=== PATIENT | male | born 1990 | race Caucasian/White ===

== ENCOUNTER 2017-02-07 03:17 | Observation (INO) ==
[2017-02-07] MEDS ORDERED: Ondansetron ODT 4 MG TAB.RAPDIS SL STA (03:28)
--- NOTE | 2017-02-07 03:31 | Emergency Department Note ---
Disposition Clinical Impression: Gastroenteritis, Renal failure, acute Disposition: Admitted As Inpatient Condition: Good Instructions: Gastroenteritis (ED) Reasons to Return/Additional Instructions: Blood pressure screening: When you had your blood pressure taken, if the top number was greater than 120 with a bottom number was greater than 80, I discussed and recommended that you call your primary care provider or a physician of your choice this week to arrange follow-up for further evaluation of your blood pressure. Elevated blood pressures which go untreated can lead to stroke, heart attack, kidney failure and other life-threatening diseases. This is a screening exam and recommendations are to follow with your Family Physician. ( We discussed reasons why the elevation could be occurring at this time. ) If you have had an EKG and/or x-ray performed in the emergency department, it will be reviewed by the pond worker and/or radiologist. If the review changes your diagnosis or treatment you will be contacted at the phone number you provided. Prescribed outpatient testing: Please call to schedule an appointment for the test that was ordered on the form provided. If you been prescribed an antibiotic: Take it as instructed until itis all finished. If you cannot tolerate that medication for some reason, call your physician for a replacement. If he had a specimen collected for a culture, a culture report takes 48-72 hours to generate. You will be contacted if a change in treatment is needed. Return if your condition worsens or if you have severe pain, fever, vomiting or difficulty breathing. If you received or were prescribed a medication that may cause drowsiness ( Tramadol, Phenergan, Trazodone, Diazepam, Lorazepam, Hydroxyzine, Xanax, Hydrocodone, Oxycodone, Codeine, or any other medication) DO NOT drive or drink alcohol, or operate machinery that requires you to be alert for at least 8 hours after taking that medication. If you smoke or chew tobacco products: discuss with your family physician options to help in the cessation in the use of tobacco products. If you to find a physician: Go to [email or web address] or call: [facility], [facility] [phone] [facility], You may have multiple scripts and some may have been electronically sent . If you are give a printed script please also take this in when filling the scripts. A diagnosis may require multiple medications to treat and all are important in your healthcare issues. Prescriptions: Ondansetron ODT [Zofran ODT] 4 mg SL Q6HR #24 tab.rapdis Referrals: NO,PCP [Primary Care Provider] - Forms: ED Satisfaction Letter Time of Disposition: 05:28 Nausea/Vomiting/Diarrhea HPI - General Chief complaint: ED Nausea/Vomiting/Diarrhea Stated complaint: vomiting Time Seen by Provider: 02/07/17 03:26 Source: patient Mode of arrival: ambulatory Limitations: no limitations Nursing Notes Reviewed: Yes Vital Signs Reviewed: Yes - History of Present Illness HPI Narrative: History of nausea vomiting no abdominal pain except for some burning irritation and irritation no fevers no chills no black or tarry melanotic stools no coffee- ground emesis he states that he thinks he is at risk for hepatitis he denies any numbness tingling weakness recently gaining weight loss any rashes or lesions Pt Subjective Complaint: nausea, vomiting Onset (ago): week(s) (3) Description of emesis: food contents Associated Abdominal Pain: Yes (epigastric) If pain, Location of pain: epigastric Severity: mild Severity scale (1-10): 2 Quality: aching Consistency: intermittent Improves with: nothing Worsens with: vomiting Context: other (possible hepatitis exposure or risk) Associated symptoms: Reports: myalgias, loss of appetite, malaise, nausea/ vomiting, weakness, other (tea colored Urine). Denies: chest pain, cough, diaphoresis, fever/chills, headaches, dysuria, shortness of breath, syncope - Related Data Home Medications Medication Instructions Recorded Confirmed Naproxen Sodium [Aleve] 220 mg PO DAILY PRN 11/27/16 02/07/17 Previous Rx's Medication Instructions Recorded Ondansetron ODT [Zofran ODT] 4 mg SL Q6HR #24 tab.rapdis 02/07/17 Allergies Allergy/AdvReac Type Severity Reaction Status Date / Time No Known Allergies Allergy Verified 11/27/16 11:11 All systems ED: reviewed and negative except as stated. Constitutional: Denies: fever, chills Eyes: Denies: eye pain ENT ED: Denies: ear pain, throat pain Cardiovascular: Denies: chest pain, palpitations Respiratory: Denies: dyspnea, wheezes Gastrointestinal: Reports: abdominal pain, nausea, vomiting Genitourinary: Denies: urgency, dysuria, frequency Musculoskeletal: Denies: back pain, neck pain Integumentary: Denies: abrasion Neurological: Denies: headache Psychiatric: Denies: anxiety Endocrine: Denies: fatigue Hematological/Lymphatic: Denies: easy bleeding Allergic/Immunologic: Denies: facial swelling Past Medical History - Past Medical History Attestation: Yes The following information was validated with the patient. Source: patient, old records reviewed, nursing notes reviewed Medical history: Reports: no medical history, other (risk for hep C) Psychiatric history: Reports: no psych history - Social History Smoking Status: Current every day smoker Smokeless Tobacco Status: No Alcohol use: Reports: none Drug use: Reports: marijuana, IVDU Physical Exam - General Limitations: no limitations General appearance: alert, in no apparent distress, cachectic - Head Head exam: atraumatic, normocephalic, normal inspection - Eye Eye exam: Present: normal appearance, PERRL, EOMI - ENT ENT exam: normal exam, normal oropharynx, mucous membranes dry, TM's normal bilaterally, normal external ear exam - Neck Neck exam: Present: normal inspection, full ROM, trachea midline - Chest Chest inspection: Present: normal inspection, symmetric chest wall rise - Respiratory Respiratory exam: Present: normal lung sounds bilaterally - Cardiovascular Cardiovascular exam: Present: regular rate, normal rhythm, normal heart sounds - Abdominal Exam Abdominal exam: Present: soft, Non-Tender, normal bowel sounds. Absent: mass, pulsatile mass - Extremities Exam Extremities exam: Present: normal inspection, full ROM, normal capillary refill. Absent: tenderness, joint swelling - Expanded Lower Extremity Exam Gait: observed and normal - Back Exam Back exam: Present: normal inspection, full ROM. Absent: muscle spasm - Neurological Exam Neurological exam: Present: alert, oriented X3, CN II-XII intact, normal gait - Psychiatric Psychiatric exam: Present: normal affect, normal mood - Skin Skin exam: Present: warm, dry, intact, normal color Course Course Narrative: he was seen and examined she was given Zofran is able to keep down blue Gatorade during this pre-time patient awaiting laboratory results resting comfortably - Reevaluation(s) Reevaluation #1: The result injury to the elevated creatinine he was admitted for observation hydrated to see if this will help resolve the creatinine will repeat a creatinine later after having received some fluids Dr Salamanca agreeable transferred to [facility] Dr. Salamanca aware Vital Signs Temperature 97.9 F 02/07/17 03:19 Pulse Rate 63 02/07/17 03:19 Respiratory Rate 18 02/07/17 03:19 Blood Pressure 100/64 02/07/17 03:19 O2 Sat by Pulse Oximetry 100 02/07/17 03:19 Temperature 97.9 F 02/07/17 03:21 Pulse Rate 63 02/07/17 03:21 Respiratory Rate 18 02/07/17 03:21 Blood Pressure 100/64 02/07/17 03:21 O2 Sat by Pulse Oximetry 100 02/07/17 03:21 Oxygen Delivery Oxygen Delivery Room Air Nausea/Vomiting/Diarrhea - Differential Diagnosis Likely: gastroenteritis - Medical Records Medical records reviewed: Yes I reviewed the patient's medical records. - Lab Data Lab results reviewed: Yes I reviewed the patient's lab results. Critical Care Time Critical Care Time: No
[2017-02-07 04:10] LABS: Basophils % 0.1 %; Eosinophils # 0.1 K/mcL (0.0-0.6); Eosinophils % 0.6 %; Hematocrit 43.3 % (37.5-50.1); Hemoglobin 15.2 g/dL (12.9-16.9); Immature Granulocytes % 0.3 % (0-4); Lymphocytes # 3.2 K/mcL (0.6-4.6); Lymphocytes % 33.7 %; Mean Corpuscular HGB Conc 35.1 g/dL (31.6-35.5); Mean Corpuscular Hemoglobin 31.9 pg (28.0-33.3); Mean Corpuscular Volume 90.8 fL (83.0-100.0); Mean Platelet Volume 10.4 fL (9.4-12.4); Monocytes # 1.1 K/mcL (0.0-1.3); Monocytes % 11.4 %; Neutrophils # 5.2 K/mcL (1.6-8.9); Platelet Count 242 K/mcL (140-400); Red Blood Count 4.77 M/mcL (4.19-5.50); Red Cell Distribution Width 12.8 % (11.5-14.5); Segmented Neutrophils % 53.9 %
[2017-02-07 04:29] LABS: Albumin 4.7 g/dL (3.5-5.0); Albumin/Globulin Ratio 1.1 (1.1-2.2); Bilirubin,Total 0.8 mg/dL (0.2-1.2); Calcium 10.5 mg/dL (8.6-10.8); Globulin 4.3 g/dL (2.4-3.5); Potassium 3.8 mEq/L (3.5-4.5)
[2017-02-07] MEDS ORDERED: Ondansetron 4 MG/2 ML VIAL IVP PRN (06:05)
[2017-02-07] MEDS ORDERED: Naloxone 0.4 MG/ML INJ IVP PRN (06:05)
[2017-02-07] MEDS ORDERED: 0.9 % Sodium Chloride 1,000 ML IVC SCH ×3 (06:05→06:30)
[2017-02-07] MEDS ORDERED: Ondansetron ODT 4 MG TAB.RAPDIS SL PRN ×2 (06:05→12:40)
[2017-02-07] MEDS ORDERED: 0.9 % Sodium Chloride 1,000 ML IVC ONE ×2 (06:30→06:35)
[2017-02-07 13:25] LABS: BUN/Creatinine Ratio 16 (6-26); Blood Urea Nitrogen 26 mg/dL (8-26); Calcium 8.6 mg/dL (8.6-10.8); Carbon Dioxide 19 mEq/L (19-29); Chloride 108 mEq/L (98-109); Glucose 88 mg/dL (70-99); Osmolality,Calculated 290 (280-300); Potassium 3.9 mEq/L (3.5-4.5); Sodium 138 mEq/L (136-145); eGFR For African Americans > 60 (> 60); eGFR For Non-African Americans 52 (> 60)
--- NOTE | 2017-02-07 14:13 | Internal Med History&Physical ---
Date of Encounter: 02/07/17 Time of Encounter: 12:10 Assessment and Plan (1) Gastroenteritis Current visit: Yes Status: Acute He has been started on IV fluids and anti-emetics. Abdominal CT scan will be ordered. Further workup will be done as needed. (2) Renal failure, acute Current visit: Yes Status: Acute Suspect secondary to NSAID use and vomiting. Will give IV fluids and hold NSAIDs and recheck labs in a.m. Qualifiers: Acute renal failure type: unspecified Qualified Code(s): N17.9 - Acute kidney failure, unspecified Internal Medicine - H&P: HPI Chief complaint: Vomiting Admitted From: Home Plans for Post Hospital Care: Home History of present illness: Mr. Nguyen is a 26 year old male who came to emergency room stating he had onset of vomiting approximately 2 weeks previously. He had vomited 1-2 times daily until the evening of February 05 when he began more frequent vomiting. He denies hematemesis. He developed some left upper abdominal discomfort and came to the emergency room for evaluation. Lab work showed creatinine 2.66 which was significantly elevated above 11/27/2016 value of 0.79. He was admitted to [facility] floor for ongoing care needs. He denies previous similar episodes of vomiting. He denies known disorders of his liver gallbladder or exocrine pancreas. He has been using an OTC Naprosyn 220 mg daily for several days as well as some OTC ibuprofen for knee pain. Past Med Surg Social Fam HX - Past Medical History Medical history: no medical history, other Psychiatric history: no psych history - Social History Smoking Status: Current every day smoker Smokeless Tobacco Status: No Alcohol use: none Drug use: marijuana, IVDU - Family History Grandmother Hx Family Endocrine Disorder: Yes (DM) Internal Medicine - H&P: Meds Naproxen Sodium [Aleve] 220 mg PO DAILY PRN 11/27/16 [History] Ondansetron ODT [Zofran ODT] 4 mg SL Q6HR #24 tab.rapdis 02/07/17 [Rx] Allergies No Known Allergies Allergy (Verified 11/27/16 11:11) All Systems PM: A 10-system review of systems was performed and is negative for pertinent findings except as documented above in the HPI. Review of systems: Gen.: He states his weight has declined approximately 10 pounds in the past 2 weeks with vomiting. Prior to that it had remained stable for several months Cardiovascular: He denies IN hypertension heart failure angina DVT or pulmonary embolus Respiratory: He has smoked since age 16 up to 1 pack per day. He denies chronic lung disease GI: Denies disorders of his liver gallbladder or exocrine pancreas : He denies hematuria dysuria or kidney stones Neurologic: He denies large distribution strokes or seizures Endocrine: Denies diabetes or thyroid disease or hyperlipidemia Hematology/oncology: He denies blood disorders cancers or anemia Psychiatric: Denies anxiety depression or other mental health issues [place] skeletal: He has occasional pain in his left knee but denies other bone joint or muscle disorders. - Constitutional Vitals: Temp Pulse Resp BP Pulse Ox 97.5 F L 63 17 86/44 99 02/07/17 11:31 02/07/17 11:31 02/07/17 11:31 02/07/17 11:31 02/07/17 11:31 Exam: Gen.: He is a well-developed well-nourished male who appears in no severe distress at present time HEENT: Head is atraumatic and normocephalic. Eyes: EOMI. There is no scleral icterus. Mouth: Mucosa is moist. Neck: Supple and nontender. There is no thyromegaly or adenopathy noted. Heart: Regular without murmurs gallops or ectopics Lungs: No wheezes or crackles are heard. Abdomen: He has mild tenderness to palpation in the left mid and upper abdominal area. No masses or guarding are noted. Bowel sounds are present but diminished. Extremities: There is no cyanosis edema or clubbing noted. Dorsalis pedis and posttibial pulses are 1-2 over 2 bilaterally. Neurologic: Mental status: He is talkative and a good historian. Cranial nerves : Smile is symmetric. Forehead wrinkles bilaterally. Tongue protrudes midline. EOMI. Motor: There is no pronator drift. Cerebellar: Finger to nose is intact bilaterally. Skin: Warm and dry Internal Med - H&P Results - Labs CBC & Chem 7: 02/07/17 04:00 02/07/17 13:00 Labs: BMP 02/07/17 13:00 Sodium 138 Potassium 3.9 Chloride 108 Carbon Dioxide 19 BUN 26 Creatinine 1.59 H Glucose 88 Calcium 8.6 D - Impressions ITS Impressions Abdomen/Pelvis CT 02/07/17 12:39 IMPRESSION: No evidence of obstructive uropathy. Normal appendix. No other acute abdominal or pelvic abnormality. D/ / Stephanie Anaya MD / Stephanie Anaya MD Interpreting Provider: Stephanie Anaya MD
[2017-02-07] MEDS ORDERED: Nicotine 21 MG PATCH.TD24 TD SCH (14:30)
[2017-02-07] MEDS: 0.45 % Sodium Chloride w/KCl 20 MEQ/1,000 ML MLS IVC SCH (15:11)
[2017-02-08] MEDS: 0.45 % Sodium Chloride w/KCl 20 MEQ/1,000 ML MLS IVC SCH (01:23)
[2017-02-08 05:45] LABS: Basophils % 0.2 %; Eosinophils # 0.1 K/mcL (0.0-0.6); Eosinophils % 2.5 %; Hematocrit 37.4 % (37.5-50.1); Immature Granulocytes % 0.2 % (0-4); Lymphocytes # 2.6 K/mcL (0.6-4.6); Lymphocytes % 49.5 %; Mean Corpuscular HGB Conc 34.8 g/dL (31.6-35.5); Mean Corpuscular Hemoglobin 32.5 pg (28.0-33.3); Mean Corpuscular Volume 93.5 fL (83.0-100.0); Mean Platelet Volume 10.3 fL (9.4-12.4); Monocytes # 0.5 K/mcL (0.0-1.3); Monocytes % 8.9 %; Platelet Count 168 K/mcL (140-400); Red Cell Distribution Width 12.8 % (11.5-14.5); Segmented Neutrophils % 38.7 %
[2017-02-08 06:03] LABS: Alanine Aminotransferase 59 Units/L (0-55); Albumin 3.2 g/dL (3.5-5.0); Albumin/Globulin Ratio 1.1 (1.1-2.2); Alkaline Phosphatase 56 Units/L (38-126); Aspartate Amino Transferase 32 Units/L (5-34); BUN/Creatinine Ratio 22 (6-26); Bilirubin,Total 0.4 mg/dL (0.2-1.2); Blood Urea Nitrogen 17 mg/dL (8-26); Calcium 8.9 mg/dL (8.6-10.8); Carbon Dioxide 20 mEq/L (19-29); Chloride 111 mEq/L (98-109); Glucose 95 mg/dL (70-99); Lipase 28 Units/L (8-78); Magnesium 1.9 mg/dL (1.6-2.6); Osmolality,Calculated 291 (280-300); Potassium 4.2 mEq/L (3.5-4.5); Sodium 140 mEq/L (136-145); Total Protein 6.2 g/dL (6.0-8.3); eGFR For African Americans > 60 (> 60); eGFR For Non-African Americans > 60 (> 60)
[2017-02-08 06:43] VITALS: BP 109/61
--- NOTE | 2017-02-08 09:37 | Discharge Summary ---
Date of Encounter: 02/08/17 Time of Encounter: 09:25 - Discharge Diagnosis (1) Gastroenteritis Priority: Primary Status: Acute (2) Renal failure, acute Priority: Secondary Status: Resolved Qualifiers: Acute renal failure type: unspecified Qualified Code(s): N17.9 - Acute kidney failure, unspecified - Discharge Medications Home Medications: Naproxen Sodium [Aleve] 220 mg PO DAILY PRN 11/27/16 [History] Ondansetron ODT [Zofran ODT] 4 mg SL Q6HR #24 tab.rapdis 02/07/17 [Rx] Allergies/Adverse Reactions: Allergies No Known Allergies Allergy (Verified 11/27/16 11:11) Procedures/tests Complete & Pending: Procedures Performed prior 72 hours Category Date Time Status CT abd pelvis wo no iv no oral [CT] Routine Cat Scan 02/07/17 12:39 Completed Date of admission: 02/07/17 06:02 Primary care physician: PCP NO - Patient Status Disposition: Home, Self-Care Condition: Good Overall status at discharge: patient is progressing back to baseline - Discharge Instructions Follow Up With: NO,PCP [Primary Care Provider] - 1 week - Diet and Activity Activity: resume usual activities as tolerated Diet: advance to your usual diet Hospital course: Mr. Nguyen is a 26 year old male who came to emergency room stating he had onset of vomiting approximately 2 weeks previously. He had vomited 1-2 times daily until the evening of February 05 when he began more frequent vomiting. He denies hematemesis. He developed some left upper abdominal discomfort and came to the emergency room for evaluation. Lab work showed creatinine 2.66 which was significantly elevated above 11/27/2016 value of 0.79. He was admitted to [facility] for ongoing care needs. Initial orders were written by the emergency room physician. I saw him on February 07 and performed a history and physical. He was started on IV fluids and anti- emetics. Abdominal CT scan showed no significant pathology. He had no vomiting the last 24 hours of hospitalization and was able tolerate adequate amount of food and fluid intake. The NSAIDs were discontinued and his azotemia resolved with BUN and creatinine being 17 and 0.78 respectively on the morning of discharge. The LFTs improved. Lipase was normal at 28. On February 08 he felt stable for discharge home. He will follow with a PCP within one week. I encouraged him strongly to discontinue smoking. - Time Spent with Patient Total time spent providing and/or coordinating discharge services: - Constitutional Vitals: Temp Pulse Resp BP Pulse Ox 98.2 F 67 16 109/61 99 02/08/17 06:40 02/08/17 06:40 02/08/17 06:40 02/08/17 06:40 02/08/17 06:40
== END 2017-02-08 12:11 | disposition home or self-care (01) ==
LOC: EMEROOPIK 03:17 → INPPIK 03:17
PROVIDERS: ADMIT Internal Medicine; ATTEND Internal Medicine